=== PATIENT | male | born 1960 | race Caucasian/White ===

== ENCOUNTER 2020-02-29 23:18 | Emergency (ER) | payer BC, SELFPAY ==
[2020-02-29] MEDS ORDERED: Lidocaine 1% w/Epinephrine 1:100K 20 ML VIAL ONE (23:26)
[2020-02-29] MEDS ORDERED: Bacitracin 1 PK ONE (23:50)
== END 2020-02-29 23:55 | disposition home or self-care (01) ==
LOC: BURERS 23:18
DX: S01.01XA Laceration without foreign body of scalp, initial encounter (principal); E03.9 Hypothyroidism, unspecified; E78.5 Hyperlipidemia, unspecified; E78.00 Pure hypercholesterolemia, unspecified; I10 Essential (primary) hypertension; W22.8XXA Striking against or struck by other objects, initial encounter
CPT/HCPCS: 12002

== ENCOUNTER 2022-09-17 17:41 | Emergency (ER) | payer BC | END 2022-09-17 18:15 | disposition home or self-care (01) | LOC: BURERS 17:41 | DX: B02.9 Zoster without complications (principal); E03.9 Hypothyroidism, unspecified; E78.00 Pure hypercholesterolemia, unspecified; I10 Essential (primary) hypertension; Z79.899 Other long term (current) drug therapy | CPT/HCPCS: 99282 ==